=== PATIENT | male | born 1975 | race Caucasian/White ===

== ENCOUNTER 2022-09-23 08:01 | Emergency (ER) | payer OTHER, SELFPAY ==
[2022-09-23 08:02] VITALS: BP 166/114; PULSE 98; RESP 18; TEMP 36.6; O2SAT 99; BMI 35.2
--- NOTE | 2022-09-23 08:17 | CT_ITS ---
STUDY: CT ABDOMEN AND PELVIS WITHOUT CONTRAST REASON FOR EXAM: Male, 47 years old. Kidney Stone. Left flank pain. RADIATION DOSAGE (If Supplied By Facility): CTDIvol = ( 20.08 ) mGy, DLP = ( 1123.78 ) mGycm TECHNIQUE: Transaxial images were obtained from the dome of the diaphragm to the symphysis pubis without oral contrast, and without intravenous contrast. Sagittal and coronal images were reconstructed. Individualized dose optimization techniques were used for this CT. COMPARISON: None. FINDINGS: The visualized lung bases are unremarkable. The visualized portions of the heart are within normal limits. There is decreased attenuation of the liver consistent with steatosis. Normal gallbladder and extrahepatic biliary system. Normal spleen. Normal pancreas. Normal bilateral adrenal glands. Normal right kidney. Normal left kidney. Normal visualized stomach. Normal small intestine. Normal colon. There are 3 adjacent rounded calcifications in the posterior aspect of the cecum. These may represent appendicoliths at the origin of the appendix. The appendix is unremarkable at this time. The largest calcification measures 1.1 cm. There is scattered atherosclerotic calcification of the abdominal aorta, without a demonstrated aneurysm. Normal inferior vena cava. Normal retroperitoneum. Distended urinary bladder. Mild central prostatic calcification. There is a left-sided inguinal hernia containing adipose tissue. Normal osseous structures. CT/Abdomen/Pelvis without Cont IMPRESSION: Fatty infiltration of the liver. Findings suggestive of 3 appendicoliths at the origin of the appendix. The appendix is unremarkable at this time. Electronically Signed: Messi Kaye MD at 9:24 EST ,
--- NOTE | 2022-09-23 08:22 | EDS_ITS ---
HPI History of Present Illness Chief Complaint: Flank Pain Narrative Narrative: 47-year-old male past medical history of kidney stone 8 to 10 years ago presents with approximately a week and a half of left-sided flank pain that has become constant. He denies any exacerbating or alleviating factors. No fevers or chills but at times he feels nauseated. No vomiting. No problems with bowel movements. He denies any dysuria or hematuria but these feel similar to when he had previous kidney stone. He has tried [id number] NSAIDs without relief. He has left flank pain that radiates somewhat to the front. No other symptoms. Prior similar symptoms: Yes Recent Illness/Hospitalization: No PFSH PFSH Home Medications NK 09/23/22 [History Last Taken Unknown] Allergy/AdvReac Type Severity Reaction Status Date / Time red dye Allergy Mild HEADACHE Verified 09/23/22 08:04 Social History Smoking Status: Never smoker alcohol intake: never ROS ROS ED ROS Narrative Constitutional: No fever, no chills. HEENT: No sore throat. No neck pain. No loss of vision. No rhinorrhea. Cardiovascular: No chest pain. No palpitations. No pedal edema. Respiratory: No cough, no shortness of breath. Abdominal: No abdominal pain. No nausea. No vomiting. Genitourinary: No dysuria. No hematuria. Positive left flank pain. Constant, but waxing and waning. Musculoskeletal: No myalgias. No arthralgias. Neurologic: No headaches. No dizziness. No lightheadedness. Skin: No rash. No change in color. Psychiatric: No depression. No anxiety. EXAM Physical Exam Narrative Exam Narrative: Afebrile. Vital signs noted. HEENT: Normocephalic. Atraumatic. PERRL, EOMI. Neck soft and supple. No point tenderness or step off. Cardiovascular: Regular rate and rhythm. No murmurs, rubs, or gallops appreciated. Respiratory: No tachypnea. Lungs clear to auscultation bilaterally. Gastrointestinal: Abdomen soft, nontender, with normoactive bowel sounds. No rebound or guarding. Neurological: Awake. Alert. Nonfocal, nonlateralizing. Skin: No rash. Normal color. No pallor. Musculoskeletal: No pedal edema. Full range of motion extremities. No left CVA tenderness to percussion. Const Vital Signs: 09/23/22 08:02 09/23/22 10:28 Temperature 97.9 F 97.9 F Temperature Source Temporal Temporal Pulse Rate 98 98 Respiratory Rate 18 18 Blood Pressure 166/114 H 166/114 H Blood Pressure Mean 131 131 Pulse Ox 99 99 Oxygen Delivery Method Room Air Room Air MDM MDM MDM Narrative Medical decision making narrative: Ureterolithiasis work-up was pursued. He was administered Toradol initially and normal saline at 250 mL/h. CBC, BMP, UA, and CT imaging was obtained. CBC shows normal white count of 7.2, hemoglobin slightly hemoconcentrated at 17.1, hematocrit 48.6. Normal platelet count of 273. Electrolyte panel shows sodium slightly low at 133 with a normal chloride of 99. BUN and creatinine are normal. Urinalysis shows no evidence of infection. CT of the abdomen and pelvis without contrast shows no evidence of hydronephrosis or ureterolithiasis. There is an appendicolith, but the appendix appears normal at this time according to radiology. His flank pain is more on the left and lower, he states it feels more like a kidney stone. At this point in time, I am unsure as to the cause of his left flank pain, but feel he can be discharged safely home with follow-up. Return instructions to the emergency department were reviewed. Disposition is discharged home in stable condition. He was referred to a primary care provider. Lab Data Attestation: I reviewed the patient's lab results. Labs: Laboratory Results - last 24 hr 09/23/22 09/23/22 09/23/22 08:40 08:40 09:18 WBC 7.2 RBC 5.73 Hgb 17.1 H Hct 48.6 MCV 84.8 MCH 29.8 MCHC 35.2 RDW Std Deviation 37.2 RDW Coeff of Jamie 12.1 Plt Count 273 MPV 9.5 Immature Gran % (Auto) 0.600 Neut % (Auto) 66.0 Lymph % (Auto) 24.1 [place] % (Auto) 7.6 Eos % (Auto) 1.0 Baso % (Auto) 0.7 Absolute Neuts (auto) 4.8 Absolute Lymphs (auto) 1.74 Nucleated RBC % 0 Sodium 133 L Potassium 4.7 Chloride 99 Carbon Dioxide 26.0 Anion Gap 8 BUN 15 Creatinine 1.10 Estim Creat Clear Calc 91.12 Est GFR (MDRD) Af Amer 92 Est GFR (MDRD) Non-Af 76 BUN/Creatinine Ratio 13.6 Glucose 412 H Calcium 9.0 Urine Color Yellow Urine Clarity Clear Urine pH 6.5 Ur Specific [place] 1.010 Urine Protein 15 H Urine Glucose (UA) 1000 H Urine Ketones 5 H Urine Occult Blood Negative Urine Nitrite Negative Urine Bilirubin Negative Urine Urobilinogen Normal Ur Leukocyte Esterase Negative Urine RBC 0 SEEN Urine WBC 0 SEEN Ur Squamous Epith Cells 0-5 SEEN Urine Bacteria 0 SEEN Urine Mucus 0 SEEN Radiography Diagnostic Testing: Clinical Impression(s) from Imaging Studies Abdomen/Pelvis CT 09/23/22 08:17 IMPRESSION: Fatty infiltration of the liver. Findings suggestive of 3 appendicoliths at the origin of the appendix. The appendix is unremarkable at this time. Electronically Signed: Messi Kaye MD at 9:24 EST , Discharge Plan Triage Chief Complaint: Flank Pain ED Provider: Deven Sanches Dx/Rx/DC Orders Clinical Impression: Acute left flank pain, Lumbar back pain Instructions: ED Flank Pain, Uncertain Cause, ED Pain, Acute, Uncertain Cause Prescriptions: No Action NK Primary Care Provider: Care Physician,No Primary Referrals: Alvin Gaffney MD [Med Staff - Supply Coordinator] - As soon as possible NOT,DEFINED [Non-Staff] - Disposition Disposition: Home, Self Care
[2022-09-23] MEDS: 0.9% Normal Saline 1,000 ML 250 ML IV (08:35)
[2022-09-23] MEDS: Ketorolac 30 MG/ML Syringe IV (08:35)
[2022-09-23 08:45] LABS: Absolute Lymphocyte Count 1.74 X10^3/uL (0.83-4.51); Absolute Neutrophil Count 4.8 X10^3/uL (2.0-7.7); Basophil# 0.05 X10^3/uL; Basophil% 0.7 % (0-1); Eosinophil# 0.07 X10^3/uL; Hematocrit 48.6 % (40-54); Hemoglobin 17.1 g/dL (13.0-16.5); Lymphocyte # 1.74 X10^3/ul (0.83-4.51); Lymphocyte % 24.1 % (19-41); Mean Corp Hgb Conc 35.2 g/dL (32-36); Mean Corpuscular Hgb 29.8 pg (27.0-32.0); Mean Corpuscular Volume 84.8 fL (80-94); Mean Platelet Vol. 9.5 fl (6.2-12.0); Monocyte# 0.55 X10^3/uL; Monocyte% 7.6 % (0-10); NRBC Flagged by Analyzer 0 % (0-5); Neutrophil # 4.78 X10^3/uL (2.7-7.7); Platelet Count 273 K/mm3 (150-450); RBC Distribution Width CV 12.1 % (11.6-14.6); RBC Distribution Width SD 37.2 fl (35.1-43.9); Red Blood Count 5.73 M/mm3 (4.6-6.2); White Blood Count 7.2 K/mm3 (4.4-11.0)
[2022-09-23 08:56] LABS: Anion Gap 8 (5-15); BUN 15 mg/dL (7-18); BUN/Creat Ratio 13.6 RATIO (10-20); Chloride 99 mmol/L (98-107); EST Glomerular Filtration Rate 76 mL/min (>60); Est Glom Filt Rate - Afr Amer 92 mL/min (>60); Estimated Creatinine Clearance 91.12 ml/min; Glucose 412 mg/dL (74-106); Potassium 4.7 mmol/L (3.5-5.1); Sodium Level 133 mmol/L (136-145)
[2022-09-23 09:23] LABS: Bacteria 0 SEEN /hpf (None Seen); Mucous, Urine 0 SEEN /hpf (<or=2+); Red Blood Cells-Urine 0 SEEN /hpf (0-5); White Blood Cells 0 SEEN /hpf (0-5)
[2022-09-23 09:25] LABS: Color, Urine Yellow (Yellow); Glucose, Dipstick 1000 mg/dl (Normal); Ketone-Dipstick 5 mg/dl (Negative); Leukocyte Esterase-Dipstick Negative /ul (Negative); Nitrite-Dipstick Negative (Negative); Occult Blood-Urine Negative /ul (Negative); Protein-Dipstick 15 mg/dl (Negative); Urine Bilirubin Dipstick Negative (Negative); Urine Clarity Clear (Clear); Urine Urobilinogen Normal (Normal); Urine pH 6.5 (5.0 - 8.0)
[2022-09-23 09:35] LABS: Squamous Epithelial Cells - UA 0-5 SEEN /hpf (0-5)
[2022-09-23 10:28] VITALS: BP 166/114; PULSE 98; RESP 18; TEMP 36.6; O2SAT 99
--- NOTE | 2022-09-23 10:37 | CM.ED ---
SW Note Referral Source: Case Find Referral Reason: No Primary Care Physician (PCP) SW reviewed chart and noted that patient has no PCP. SW provided patient with list of [facility] and [facility] Physician List for reference. No other issues or concerns voiced at this time. SW remains available for any additional needs. Plan: Provided patient with PCP information Stefania SOTO
== END 2022-09-23 11:08 | disposition home or self-care (01) ==
PROVIDERS: Emergency Provider Emergency Medicine; Visit Provider Emergency Medicine
DX: R10.9 Unspecified abdominal pain (principal); M54.50 Low back pain, unspecified
CPT/HCPCS: 74176; 80048; 81001; 85025; 96374; 99283; J7030; A4216